=== PATIENT | male | born 1995 | race Caucasian/White ===

== ENCOUNTER 2021-08-28 10:00 | Outpatient (REF) | payer OTHER, SELFPAY ==
[2021-08-28 10:36] LABS: COVID-19 Test Negative (Negative)
== END 2021-08-28 10:01 | disposition home or self-care (01) ==
LOC: HO.LAB 10:00
PROVIDERS: Visit Provider Internal Medicine
DX: Z20.822 Contact with and (suspected) exposure to COVID-19 (principal)
CPT/HCPCS: 36415; 87635; C9803

== ENCOUNTER 2021-10-03 13:34 | Outpatient (REF) | payer SELFPAY ==
[2021-10-03 13:54] LABS: Binax Internal Control QC Valid; Binax Now Covid-19 Ag Positive (Negative)
[2021-10-03 13:55] LABS: Binax Lot number: 9864
== END 2021-10-03 13:35 | disposition home or self-care (01) ==
LOC: HO.LAB 13:34
PROVIDERS: Visit Provider Internal Medicine
DX: Z20.822 Contact with and (suspected) exposure to COVID-19 (principal)
CPT/HCPCS: 36415

== ENCOUNTER 2022-02-21 10:16 | Outpatient (REF) | payer OTHER, SELFPAY ==
[2022-02-21 11:01] LABS: COVID-19 Test Negative (Negative); IDNOW Serial# 55D5AD1C
== END 2022-02-21 10:17 | disposition home or self-care (01) ==
LOC: HO.LAB 10:16
PROVIDERS: Visit Provider Internal Medicine
DX: Z20.822 Contact with and (suspected) exposure to COVID-19 (principal)
CPT/HCPCS: 87635; C9803